=== PATIENT | male | born 1970 | race Caucasian/White ===

== ENCOUNTER 2016-10-10 20:41 | Emergency (ER) | payer BC, OTHER ==
[2016-10-10 20:57] VITALS: BP 150/87; PULSE 73; RESP 18; TEMP 97.7
[2016-10-10 21:15] LABS: Glucose,Whole Blood 133 mg/dL (75-99)
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
== END 2016-10-10 21:49 | disposition home or self-care (01) ==
LOC: EC 20:41
DX: F10.129 Alcohol abuse with intoxication, unspecified (principal); E11.9 Type 2 diabetes mellitus without complications; Z79.4 Long term (current) use of insulin; F17.200 Nicotine dependence, unspecified, uncomplicated
CPT/HCPCS: 36415; 99284

== ENCOUNTER 2024-02-02 07:24 | Day surgery (SDC) | payer BC, OTHER ==
[~2024-02-02 07:24] MED LIST: LACTATED RINGERS 1,000 ML IV SCH
== END 2024-02-02 07:55 | disposition home or self-care (01) ==
LOC: ORWHC2ENDO 07:24
PROVIDERS: ATTEND Surgery
DX: Z53.8 Procedure and treatment not carried out for other reasons (principal); K59.00 Constipation, unspecified

== ENCOUNTER → 2024-02-13 | Outpatient (CLI) | payer BC ==
[2024-02-13 09:59] VITALS: BP 146/82; PULSE 86; RESP 16
--- NOTE | 2024-02-13 14:59 | P.PAINPG ---
PQRS Measure Charge Sheet Comment: HISTORY OF PRESENT ILLNESS: A 53 yr old male as a referral from Dr Oliver presents today w severe and chronic LBP secondary to DDD, spondylosis and facet arthropathy without myelopathy for evaluation. Pt states pain level is provoked at 6/10 in intensity, constant, localized in the lumbar spine, predominantly axial, achy in character w occasional shooting pain towards the back of the LEs towards the ankles. Pain is provoked by walking or lifting. Pain is alleviated by PT x 12 wks which ended in Nov 2023, chiropractic visits weekly x 1 mo w last visit in Sep 2023, physician guided home exercises every other day since Nov 2023, ice, medications (Mobic), repositioning and rest . Oswestry axial pain score at 26. 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 No recent weight loss. NEUROLOGICAL: + numbness and tingling along the distal extremities. No seizure disorders or headaches. MUSCULOSKELETAL: + pain PSYCHIATRIC: Denies current depression or suicidal thoughts. Physical Examinations : Constitutional : Cooperative , not in acute distress . Neurologic : Cranial nerve II to XII intact. No focal neurological deficits. Psychiatric : alert & oriented x 3. Matching mood & appropriate affect. Judgment & insight intact. Musculoskeletal : Cervical Spine Motor strength in the deltoid and biceps: Normal right side. Normal Left side Motor strength biceps and the wrist extensors: Normal right side . Normal left side Motor strength in the triceps muscle: Normal right side. Normal left side Deep tendon reflexes: Normal at the biceps. Normal at Brachioradialis. Normal at triceps Vertebral body tenderness to deep palpation over Cervical facet loading test: positive bilaterally Spurling test: positive bilaterally Neck distraction test: positive bilaterally Dimitris sign: positive bilaterally Lumbar spine Motor strength lower extremities ,thigh and legs 5/5 Right side , 5/5 Left side Deep tendon reflexes : Normal Knee Jerk. Normal Ankle Jerk Vertebral body tenderness over Ramirez Test positive Lumbar facet Loading Test: positive Right / positive Left Range of motion of the lumbar spine Flexion 30 degrees, extension 10 degrees Straight Leg Raise test: Left/ Right positive at degrees Jurgen test: positive right / positive left. Severe tenderness over the Sacroiliac joint on the Right / Left sides Gaenslen test: positive bilaterally Seated flexion test: positive bilaterally. Sacral spine : Severe tenderness over the Sacroiliac joint: right side / left side Range of motion: Flexion of the lumbar spine <60 degrees Range of motion: Extension of the lumbar spine <20 degrees Gaenslen's Test positive Jurgen test: positive right side / left side Thigh Thrust Test Sacral Thrust Test Imaging: None on file Assessment/ Plan : Lumbar DDD Recommendation of xray lumbar spine M51.36. All questions answered. I have spent greater than 30 minutes on patient care today. Dr Diana was available by phone for the evaluation of this patient. The time was used to review the medical records including relevant urine studies and Prescription history (MAPs), review of the available imaging, evaluation and examination of t he patient, coordination of care with the medical staff and if applicable referring physicians, as well as creation of the medical record PQRS Narrative: Smoking Status Current every day smoker Home Medications: Ambulatory Orders Meloxicam [Mobic] 15 mg PO DAILY 01/31/24 Controlled Substance Measures - Controlled Substance Measures Is patient prescribed a controlled substance at discharge?: No
== END ==
LOC: PNWHC3 09:28
PROVIDERS: ATTEND Specialist
DX: M51.36 Other intervertebral disc degeneration, lumbar region (principal); F17.200 Nicotine dependence, unspecified, uncomplicated
CPT/HCPCS: 99211

== ENCOUNTER 2024-03-08 07:05 | Day surgery (SDC) | payer BC ==
[2024-03-07 10:45] VITALS: BMI 29.7
[~2024-03-08 07:05] MED LIST changes: -LACTATED RINGERS 1,000 ML IV SCH; +LIDOCAINE 1% (10MG/ML) FOR IV START INTRADERMA PRN
[2024-03-08] MEDS: IV FLUID CONTINUATION 1,000 ML IV ONE (07:18)
[2024-03-08 07:32] VITALS: TEMP 97.7
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
[2024-03-08 07:47] LABS: Glucose,Whole Blood 146 mg/dL (70-110)
[2024-03-08] MEDS: LACTATED RINGERS 1,000 ML IV SCH (07:47)
[2024-03-08] MEDS ORDERED: LIDOCAINE 1% INJ 10MG/ML (20 ML MDV) ONE (07:50)
[2024-03-08] MEDS ORDERED: PROPOFOL 10 MG/ML 20 ML VIAL IV ONE (07:50)
--- NOTE | 2024-03-08 08:09 | P.OP ---
Date of Procedure: 03/08/24 Preoperative Diagnosis: Greening colonoscopy Postoperative Diagnosis: Diverticulosis Procedure(s) Performed: Colonoscopy Anesthesia: MAC Surgeon: Noel Dolan Pathology: none sent Condition: stable Disposition: PACU Description of Procedure: The patient was placed on the endoscopy table in the lateral position. He received IV sedation. Digital rectal exam was performed. There were few external hemorrhoids. Flexible colonoscope was then placed patient anus passed throughout the entire colon. The ileocecal valve was visualized. The cecum, ascending and transverse colon appeared normal. In the descending and sigmoid colon there was moderate diverticulosis. The scope was then brought back to the rectum this appeared normal. Scope withdrawn for the patient.
[2024-03-08 08:26] VITALS: RESP 16
[2024-03-08 08:52] VITALS: BP 136/81; PULSE 67
== END 2024-03-08 09:14 | disposition home or self-care (01) ==
LOC: ORWHC2ENDO 07:05
PROVIDERS: ATTEND Surgery
DX: K59.00 Constipation, unspecified (principal); I10 Essential (primary) hypertension; E11.9 Type 2 diabetes mellitus without complications; F17.200 Nicotine dependence, unspecified, uncomplicated; Z79.1 Long term (current) use of non-steroidal anti-inflammatories (NSAID); Z79.899 Other long term (current) drug therapy
CPT/HCPCS: 45378; J2001; J2704